=== PATIENT | male | born 1940 | race Caucasian/White ===

== ENCOUNTER → 2019-03-17 11:25 | Outpatient (CLI) | payer MEDICARE, OTHER, SELFPAY ==
--- NOTE | 2019-03-17 11:35 | CA_ITS ---
APPROVED REPORT Refrigerator Repair Technician: JR Laterality: Bilateral Indications: BG Risk Factors Hyperlipidemia CAD, Surgery/Intervention Endarterectomy: left Doppler Spectral Velocity Analysis ECA (R) 211.70/16.70 cm/s ECA (L) 241.60/27.00 cm/s dICA (R) 123.50/20.00 cm/s dICA (L) 118.50/23.10 cm/s Eduardo (R) 171.70/37.60 cm/s Eduardo (L) 129.10/20.20 cm/s pICA (R) 174.00/34.10 cm/s pICA (L) 99.20/14.40 cm/s dCCA (R) 95.00/15.40 cm/s dCCA (L) 86.00/16.70 cm/s pCCA (R) 104.00/12.80 cm/s pCCA (L) 94.40/21.20 cm/s Vert (R) 72.90/14.10 cm/s Vert (L) 53.90/12.50 cm/s ICA/CCA 1.80 ICA/CCA 1.50 Findings Duplex evaluation demonstrates stenosis of the right proximal internal carotid artery in the range of 50-69% with PSV =140 cm/sec, EDV <100 cm/sec, and IC/CC Ratio <4.0.Duplex evaluation demonstrates stenosis of the left proximal internal carotid artery in the range of 20-49% with PSV <140 cm/sec, EDV <100 cm/sec, and IC/CC Ratio <4.0. Conclusion Duplex evaluation demonstrates stenosis of the right proximal internal carotid artery in the range of 50-69% with PSV =140 cm/sec, EDV <100 cm/sec, and IC/CC Ratio <4.0.Duplex evaluation demonstrates stenosis of the left proximal internal carotid artery in the range of 20-49% with PSV <140 cm/sec, EDV <100 cm/sec, and IC/CC Ratio <4.0. Electronically signed by : Rick Ware MD 03/20/2019 16:01:24
== END ==
PROVIDERS: PCP Family Medicine; Visit Provider Internal Medicine
DX: I65.23 Occlusion and stenosis of bilateral carotid arteries (principal)
CPT/HCPCS: 93880

== ENCOUNTER → 2019-03-25 10:26 | Outpatient (CLI) | payer MEDICARE, OTHER, SELFPAY ==
[2019-03-25 10:49] LABS: Basophils % 0.4 % (0.1-2.0); Eosinophils # 0.2 K/mm3 (0.0-0.4); Eosinophils % 3.6 % (0.1-12.0); Hematocrit 35.2 % (42.0-52.0); Hemoglobin 11.8 g/dL (14.1-18.0); Lymphocytes # 1.8 K/mm3 (0.7-4.5); Lymphocytes % 27.3 % (10-50); Mean Corpuscular HGB Conc 33.6 g/dL (31.8-35.4); Mean Corpuscular Volume 92.4 fl (80-94); Mean Platelet Volume 8.5 fl (7.4-10.4); Monocytes # 0.4 K/mm3 (0.1-1.0); Monocytes % 6.6 % (1.7-9.3); Platelet Count 229 K/mm3 (142-424); Red Cell Distribution Width 12.7 % (11.5-17.5); White Blood Count 6.4 K/mm3 (4.8-10.8)
[2019-03-25 11:47] LABS: Anion Gap 13.4 mEq/L (5-15); Blood Urea Nitrogen 27 mg/dL (7-18); Calcium 8.5 mg/dL (8.5-10.1); Carbon Dioxide 27 mmol/L (21.0-32.0); Chloride 105 mmol/L (98-107); Creatinine,Serum 1.04 mg/dL (0.70-1.30); Estimated Glomerular Filt Rate 69 ml/min (>60); GFR (African American) 84 ML/MIN (>60); Glucose 195 mg/dL (74-106); Potassium 4.4 mmoL/L (3.5-5.1); Sodium 141 mmol/L (136-145)
== END ==
PROVIDERS: Visit Provider Internal Medicine
DX: Z95.5 Presence of coronary angioplasty implant and graft (principal); Z51.81 Encounter for therapeutic drug level monitoring
CPT/HCPCS: 36415; 80048; 85025

== ENCOUNTER → 2019-09-17 10:54 | Outpatient (CLI) | payer MEDICARE, OTHER, SELFPAY | PROVIDERS: PCP Family Medicine; Visit Provider Internal Medicine Cardiovascular Disease | DX: E11.9 Type 2 diabetes mellitus without complications (principal); E78.5 Hyperlipidemia, unspecified; F11.20 Opioid dependence, uncomplicated; G89.29 Other chronic pain; I11.9 Hypertensive heart disease without heart failure; I25.10 Atherosclerotic heart disease of native coronary artery without angina pectoris; I27.20 Pulmonary hypertension, unspecified; I65.29 Occlusion and stenosis of unspecified carotid artery; I70.1 Atherosclerosis of renal artery; I71.4 Abdominal aortic aneurysm, without rupture; I73.9 Peripheral vascular disease, unspecified; R94.31 Abnormal electrocardiogram [ECG] [EKG]; Z01.818 Encounter for other preprocedural examination; Z95.1 Presence of aortocoronary bypass graft; Z95.2 Presence of prosthetic heart valve | CPT/HCPCS: 93306 ==

== ENCOUNTER → 2020-01-19 12:19 | Outpatient (CLI) | payer MEDICARE, OTHER, SELFPAY ==
--- NOTE | 2020-01-19 12:32 | XR_ITS ---
PROCEDURE: XR CHEST 2V CLINICAL HISTORY: shortness of breath COMPARISON: No exams were available for comparison FINDINGS: Prior 6 median sternotomy with aortic valve replacement. Normal heart size. Coronary artery calcification is noted. There is increased soft tissue density in the left hilar region. There are no previous exams for comparison to determine if this is acute or chronic. Patchy density is present in the left perihilar area and may be due to an area of atelectasis infiltrate or fibrosis. There is mild wedging of T5 and T6 age indeterminate. IMPRESSION: Postsurgical changes with left perihilar atelectasis or infiltrate a with increased density in the left hilum the. Follow-up suggested to confirm stability Dictated by: Rick Ware MD 01/19/2020 12:49 Rick Ware MD in [place] 01/19/2020 12:49
[2020-01-19 12:47] LABS: Basophils % 0.3 % (0.1-2.0); Eosinophils # 0.1 K/mm3 (0.0-0.4); Eosinophils % 1.9 % (0.1-12.0); Hematocrit 32.9 % (42.0-52.0); Hemoglobin 10.5 g/dL (14.1-18.0); Lymphocytes # 1.5 K/mm3 (0.7-4.5); Lymphocytes % 24.5 % (10-50); Mean Corpuscular HGB Conc 31.8 g/dL (31.8-35.4); Mean Corpuscular Hemoglobin 29.6 pg (27.0-31.2); Mean Corpuscular Volume 93.3 fl (80-94); Mean Platelet Volume 8.5 fl (7.4-10.4); Monocytes # 0.4 K/mm3 (0.1-1.0); Monocytes % 5.7 % (1.7-9.3); Neutrophils # 4.1 K/mm3 (1.8-7.8); Neutrophils % 67.6 % (37.0-80.0); Platelet Count 257 K/mm3 (142-424); Red Blood Count 3.53 M/mm3 (4.60-6.20); Red Cell Distribution Width 15.1 % (11.5-17.5); White Blood Count 6.1 K/mm3 (4.8-10.8)
[2020-01-19 13:15] LABS: Chloride 107 mmol/L (98-107); Sodium 140 mmol/L (136-145)
[2020-01-19 13:16] LABS: Potassium 4.3 mmoL/L (3.5-5.1)
[2020-01-19 13:19] LABS: Anion Gap 11.3 mEq/L (5-15); Blood Urea Nitrogen 19 mg/dl (9-20); Calcium 9.3 mg/dl (8.4-10.2); Carbon Dioxide 26 mmol/L (22.0-30.0); Estimated Glomerular Filt Rate 65 ml/min (>60); GFR (African American) 79 ML/MIN (>60); Glucose 176 mg/dl (74-100)
[2020-01-19 13:26] LABS: NT Pro Brain Natriuretic Pep. 1790 pg/mL (0-450)
[2020-01-19 13:33] LABS: Free T4 (Free Thyroxine) 0.89 ng/dl (0.78-2.19)
[2020-01-19 13:47] LABS: Thyroid Stimulating Hormone 2.11 uIU/mL (0.465-4.68)
== END ==
PROVIDERS: Visit Provider Urology
DX: I50.9 Heart failure, unspecified (principal); R06.00 Dyspnea, unspecified; E11.9 Type 2 diabetes mellitus without complications
CPT/HCPCS: 36415; 71046; 80048; 83880; 84439; 84443; 85025

== ENCOUNTER → 2020-01-20 11:13 | Outpatient (CLI) | payer MEDICARE, OTHER, SELFPAY ==
--- NOTE | 2020-01-20 | CA_ITS ---
APPROVED REPORT Exam: Pharmacologic Technologist: Yarelis Norton Ht: 5 ft 8 in Wt: 209 lbs BSA: 2.08 m2 HR: 68 bpm BP: 120/59 mmHg Indications: Chest pain, Shortness of Breath Medical History Medications: Furosemide (LASIX),,,,, Aspirin,,,,, Losartan,,,,, Pantoprazole,,,,, Glimepiride,,,,, Citalopram,,,,, Duoneb,,,,, Ropinirole,,,,, CloPIdogrel,,,,, Potassium,,,,, Hydrocodone-Acetaminohen,,,,, Stress Test Details Test: LEXISCAN HR Resting HR: 86 bpm Max Heart Rate (APMHR): 143 bpm Max HR Achieved: 95 bpm Target HR (85% APMHR): 121 bpm % of APMHR: 66 Recovery HR: 76 bpm BP Resting BP: 120.0/59.0 mmHg Max BP: 132.0/60.0 mmHg Recovery BP: 132.0/60.0 mmHg ECG Clinical Exercise duration: 04:00 min Highest Stage Achieved: Stress ECG Conclusion Resting EKG: Normal sinus rhythm, right axis, LVH with strain pattern. Symptoms: Shortness of air, malaise, nausea, headache. Arrhythmias/Ectopy: Rare PAC ST-T Changes: No significant changes. Conclusion: Non-diagnostic Lexiscan stress. Myoview images reported separately. Test Summary . . Myoview Injected . . . Stop exercise at 04:00 . . . . Electronically signed by : Jordon Barragan, 01/21/2020 05:34:07
--- NOTE | 2020-01-20 11:14 | CA_ITS ---
APPROVED REPORT EXAM: Comprehensive 2D, Doppler, and color-flow Echocardiogram Staple Laster: Keira Crandall RDCS Ht: 5 ft 8 in Wt: 208lbs BSA: 2.08 BP: 136/57 mmHg Indications: AVR,CAD,SOA,EDEMA,DM,HLP 2D Dimensions LVOT 1.62 cm (M/F) 1.5-2.5 M-Mode Dimensions RVDd 2.37 cm (0.9-2.6) LA Diam 4.00 cm (1.9-4.0) LVDd 6.14 cm (3.5-5.7) Ao Diam 3.69 cm (2.0-3.7) LVDs 4.82 cm (3.5-5.7) IVSd 1.08 cm (0.6-1.1) PWd 0.96 cm (0.6-1.1) EF (Teich) 42.80% FS 21.50% EDV (Teich) 189.70 mL ESV (Teich) 108.60 mL LV Diastology E Decel Time 197.00 (160-240 msec) E/A Ratio 1.3 MED E' 6.00 (< 7 cm/sec) E'/MED E' Ratio 16.62 (>14) LAT E' 5.60 (<10 cm/sec) E/LAT E' Ratio 17.80 (>14) Aortic Valve LVOT Max 139.00 (70-110 cm/s) LVOT VTI 31.97 cm AoV Peak Daryl. 261.00 (50-130 cm/s) AO Peak GR. 27.50 mmHg AO Mean GR. 18.30 (<5 mmHg) AO VTI 58.86 (18-25 cm) JAY (VTI) 1.12 (2.5-4.5 cm2) Mitral Valve MV E Max Daryl. 100.00 (40-130 cm/s) MV A Velocity 76.00 (40-130 cm/s) E/A Ratio 1.32 MV Decel. Time 197.00 (160-240 ms) MV PHT 58.00 ms Tricuspid Valve TR P. Velocity 315.00 cm/s RAP Estimate 10.00 mmHg RVSP 49.80 mmHg Left Ventricle Technically difficult study because of the patient factors and poor acoustic windows. Left atrium is mildly enlarged, left ventricle is normal size, mild concentric left ventricular hypertrophy, visually estimated ejection fraction 45%, there is moderate hypokinesis involving the inferior and inferior basal wall. Grade 1 diastolic dysfunction seen with tissue Doppler evidence of raise left atrial pressure. Right Ventricle Right atrium and right ventricle mildly enlarged with normal contractility. Aortic Valve There is a bioprosthetic valve in the aortic position, the leaflets are not well visualized, the mean gradient across valve is 24 mmHg. There is no aortic insufficiency. Mitral Valve Mitral valve has dense mitral annular calcification, leaflets are minimally thickened, there is no mitral stenosis, there is mild mitral regurgitation. Tricuspid Valve Tricuspid valve is grossly normal, there is mild tricuspid regurgitation. Pulmonic Valve Pulmonic valve is poorly visualized. Great Vessels Aortic root is normal size. Pericardium No significant pericardial effusion noted. Conclusion 1. Biatrial enlargement, normal left ventricular size, mild concentric left ventricular hypertrophy, visually estimated ejection fraction 45% with segmental wall motion abnormality described above. Grade 1 diastolic dysfunction seen with tissue Doppler evidence of raise left atrial pressure. 2. Mildly enlarged right ventricle with normal contractility. 3. Bioprosthetic valve in the aortic position, leaflets are not well visualized, mean gradient across valve is 24 mmHg. There is no aortic insufficiency. 4. Mild mitral and tricuspid regurgitation. 5. No significant pericardial effusion noted. Electronically signed by : Jordon Barragan, 01/21/2020 06:36:59
--- NOTE | 2020-01-20 11:51 | NM_ITS ---
APPROVED REPORT Exam: Nuclear Stress Test Indication: chest pain..short of breath..palpitations..syncope..fatigue Patient Location: Outpatient Stress Tech: Yarelis Norton [place] Tech:Brooke Green AMALIALynn RT(R)(N) Ht: 5 ft 9 in Wt: 209 lbs HR: 68 bpm BP: 120/59 mmHg BSA: 2.10 m2 BMI: 30.8 History: chest pain..short of breath..palpitations..syncope..fatigue Procedure: Patient received a 0.4 mg of intravenous Lexiscan, resting heart rate 68 bpm, resting blood pressure 120/59 mmHg, with Lexiscan maximum heart rate achived was 91 bpm which is Less than 85 % of the maximum predicted heart rate and blood pressure was 126/56 mmHg. With Lexiscan, patient denied any complaint of chest pain. Electrocardiogram Resting electrocardiogram showed sinus rhythm, nonspecific ST-T changes, with Lexiscan there is less than 1.[address] segment depression noted from the baseline EKG. The EKG portion of the Lexiscan Myoview is nondiagnostic. Cardiac Stress and Resting SPECT Images: Cardiac Stress and Resting SPECT images were obtained using technetium 99m Myoview 32.4 mCi stress and 10.27 mCi at rest. Gated SPECT for analysis of segmental wall motion and calculation of the ejection fraction also done. Cardiac stress and rest SPECT images show a partial reversible defect involving the inferior wall consistent with mixed ischemia and scar, there is transient ischemic dilatation of the left ventricle seen, computer derived ejection fraction is 47% with moderate inferior wall hypokinesis. Right ventricle is mildly enlarged with normal contractility. Conclusion: 1. The EKG portion of the Lexiscan Myoview is nondiagnostic. 2. Scintigraphic evidence of mixed ischemia and scar involving the inferior wall, there is transient ischemic dilatation of the left ventricle seen raising the concerns for presence of multivessel coronary artery disease, computer derived ejection fraction is 47% with segmental wall motion abnormality described above, right ventricle is mildly enlarged with normal contractility. 3. Abnormal Lexiscan Myoview study. Electronically signed by : Jordon Barragan, 01/21/2020 05:57:54
--- NOTE | 2020-01-20 14:52 | HMH.ITSHM ---
Current Home Medications as stated by this patient Molina Murguia or workforce services representative. []clopidogrel citalopram pantoprazole asa glimepiride losartan
== END ==
PROVIDERS: PCP Family Medicine; Visit Provider Internal Medicine
DX: R94.31 Abnormal electrocardiogram [ECG] [EKG] (principal); Z95.1 Presence of aortocoronary bypass graft; R06.02 Shortness of breath
CPT/HCPCS: 78452; 93017; 93306; A9502; J2785

== ENCOUNTER → 2020-01-21 12:15 | Outpatient (CLI) | payer MEDICARE, OTHER, SELFPAY ==
[2020-01-21 13:05] LABS: Basophils % 0.3 % (0.1-2.0); Eosinophils # 0.2 K/mm3 (0.0-0.4); Eosinophils % 2.4 % (0.1-12.0); Hematocrit 32.5 % (42.0-52.0); Lymphocytes # 1.4 K/mm3 (0.7-4.5); Lymphocytes % 21.2 % (10-50); Mean Corpuscular HGB Conc 30.8 g/dL (31.8-35.4); Mean Corpuscular Hemoglobin 29.1 pg (27.0-31.2); Mean Corpuscular Volume 94.4 fl (80-94); Monocytes # 0.5 K/mm3 (0.1-1.0); Monocytes % 7.9 % (1.7-9.3); Neutrophils # 4.6 K/mm3 (1.8-7.8); Neutrophils % 68.3 % (37.0-80.0); Platelet Count 243 K/mm3 (142-424); Red Blood Count 3.44 M/mm3 (4.60-6.20); Red Cell Distribution Width 14.6 % (11.5-17.5); White Blood Count 6.7 K/mm3 (4.8-10.8)
[2020-01-21 13:30] LABS: Chloride 106 mmol/L (98-107); Potassium 4.5 mmoL/L (3.5-5.1); Sodium 142 mmol/L (136-145)
[2020-01-21 13:33] LABS: Anion Gap 15.5 mEq/L (5-15); Blood Urea Nitrogen 20 mg/dl (9-20); Calcium 9.3 mg/dl (8.4-10.2); Carbon Dioxide 25 mmol/L (22.0-30.0); Estimated Glomerular Filt Rate 59 ml/min (>60); GFR (African American) 71 ML/MIN (>60); Glucose 149 mg/dl (74-100)
[2020-01-21 15:09] LABS: Coronavirus 19 IgG Antibody Negative (Negative); Coronavirus 19 IgM Antibody Negative (Negative)
== END ==
PROVIDERS: Visit Provider Internal Medicine
DX: Z01.818 Encounter for other preprocedural examination (principal); I50.33 Acute on chronic diastolic (congestive) heart failure; R94.31 Abnormal electrocardiogram [ECG] [EKG]; I50.22 Chronic systolic (congestive) heart failure
CPT/HCPCS: 36415; 80048; 85025; 86328

== ENCOUNTER 2020-01-23 07:53 | Day surgery (SDC) | payer MEDICARE, OTHER, SELFPAY ==
[2020-01-23] VITALS (21 sets, daily range): BP systolic 128–175; BP diastolic 61–103; PULSE 62–84; RESP 16–20; TEMP 36.8–37.3; O2SAT 96–98; BMI 31.6
--- NOTE | 2020-01-23 07:07 | IR_ITS ---
APPROVED REPORT Patient Location: Outpatient PROCEDURES Right heart catheterization Left heart catheterization Left ventriculogram Selective coronary angiogram Selective engagement of the left internal mammary artery which bifurcates into the first diagonal artery and mid LAD Selective engagement of the saphenous vein graft to the right coronary INDICATION Coronary artery disease, History of coronary bypass surgery, Pulmonary hypertension, Biventricular congestive heart failure, Short of angina and heart failure symptoms, History of aortic valve replacement Informed consent was obtained prior to the procedure. COMPLICATIONS none Estimated Blood Loss: less than 10 mls TECHNIQUE One percent lidocaine was used to anesthetize the right groin. The right femoral artery was accessed via the Seldinger technique. A 4-Icelandic and 7 german sheath was placed in the right femoral artery and vein respectfully. A 7 Icelandic sheath was introduced and a [place]-Nael catheter was floated using hemodynamic waveforms in the pulmonary artery, right ventricle , and right atrium. Saturations were obtained in the pulmonary artery and the right atrium. The JR-4 and JL-4 catheter was also used to perform left heart catheterization, left ventriculography and selective coronary angiogram. The JR4 catheter was used to selectively intubate the left internal mammary artery and the multipurpose catheter was used to cannulate the saphenous vein graft to the right coronary at the end of the procedure the patient was transferred to the post-op holding area in stable condition for arterial sheath removal. ANGIOGRAPHIC RESULTS The left main artery Has a stent in the ostial proximal mid distal segment which extends into the proximal LAD. The stent is widely patent with minimal in-stent restenosis The left anterior descending artery Has a stent originating from the left main artery and extending the proximal LAD. The ostial LAD has a 50% hazy stenosis. There is competitive flow identified from the TYSON graft to the LAD. The first diagonal artery is occluded however supplied by large arterial graft teeing off the left internal mammary artery The circumflex artery Is nondominant and has a stent in the proximal segment which has mild in-stent restenosis. The mid vessel was smaller in caliber approximately 2 mm and then supplies a solitary terminal obtuse marginal artery which has a proximal 60% stenosis The right coronary artery Is dominant proximally subtotally occluded and fills via left to right collaterals from the LAD The DOMINGO ventriculogram reveals Dilated ventricle with inferior wall hypokinesis and estimated ejection fraction 40 to 45% The left ventricular end-diastolic pressure 18 mmHg Left internal mammary arteries are widely patent large graft which supplies the mid LAD with antegrade flow. There is a graft which teased off the distal TYSON and then supplies a large diagonal artery which is also widely patent. The saphenous vein graft to the right coronary is proximally occluded Right atrial pressure 8 mmHg Pulmonary artery pressure 32/20 mmHg Pulmonary occlusion pressure 17 mmHg Right atrial saturation 61% Pulmonary artery saturation 65% There is a 20 mm transaortic valve gradient upon catheter pullback with a 5 Icelandic JR4 catheter IMPRESSION Coronary artery disease as described above Interval progression of coronary artery disease with interval occlusion of the saphenous vein graft supplying right coronary Mild pulmonary hypertension Mildly elevated intracardiopulmonary filling pressures Mild aortic stenosis within the prosthetic aortic valve PLAN 1. Continue medical management for coronary disease 2. Continu
[2020-01-23 12:20] LABS: CATHL Arterial O2 SAT 65.4 % (90-100)
== END 2020-01-23 13:14 | disposition home or self-care (01) ==
LOC: CATHLAB 07:54
PROVIDERS: PCP Family Medicine; Visit Provider Internal Medicine
DX: I25.118 Atherosclerotic heart disease of native coronary artery with other forms of angina pectoris; I50.42 Chronic combined systolic (congestive) and diastolic (congestive) heart failure; I65.29 Occlusion and stenosis of unspecified carotid artery; I71.4 Abdominal aortic aneurysm, without rupture; I27.20 Pulmonary hypertension, unspecified; E11.22 Type 2 diabetes mellitus with diabetic chronic kidney disease; N18.30 Chronic kidney disease, stage 3 unspecified; R06.00 Dyspnea, unspecified; I13.0 Hypertensive heart and chronic kidney disease with heart failure and stage 1 through stage 4 chronic kidney disease, or unspecified chronic kidney disease; R60.9 Edema, unspecified; E78.5 Hyperlipidemia, unspecified; Z95.2 Presence of prosthetic heart valve; Z79.52 Long term (current) use of systemic steroids; Z79.01 Long term (current) use of anticoagulants; Z79.899 Other long term (current) drug therapy
CPT/HCPCS: 82810; 93461; 99152; C1725; C1751; C1769; C1894; J1644; Q9967

== ENCOUNTER → 2020-09-28 07:39 | Outpatient (CLI) | payer MEDICARE, OTHER, SELFPAY ==
--- NOTE | 2020-09-28 07:40 | US_ITS ---
PROCEDURE: US ABD. AORTA SCREENING CLINICAL INDICATION: AAA 3.3 cm Screening for abdominal aortic aneurysm COMPARISON: No exams were available for comparison FINDINGS: There is mild fusiform dilatation of the mid abdominal aorta at 3 cm. Proximal common iliacs are unremarkable at 1 cm each. Images are somewhat limited secondary to overlying bowel gas. 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 Dictated by: Rick Ware MD 09/28/2020 08:47 Rick Ware MD in [place] 09/28/2020 08:47
--- NOTE | 2020-09-28 08:19 | CA_ITS ---
APPROVED REPORT [place] Nibs Inspector: YOAN Laterality: Bilateral Study Quality: Good Indications: carotid artery stenosis Risk Factors Hypertension: Hyperlipidemia CAD, Diabetes, BG, AAA Doppler Spectral Velocity Analysis ECA (R) 325.10/25.70 cm/s ECA (L) 254.50/18.80 cm/s dICA (R) 140.70/36.20 cm/s dICA (L) 117.50/27.90 cm/s Eduardo (R) 144.90/33.40 cm/s Eduardo (L) 173.40/31.80 cm/s pICA (R) 182.50/43.20 cm/s pICA (L) 121.40/33.70 cm/s dCCA (R) 98.50/18.80 cm/s dCCA (L) 113.10/19.70 cm/s pCCA (R) 100.50/13.90 cm/s pCCA (L) 100.20/14.60 cm/s Vert (R) 48.60/9.70 cm/s Vert (L) 96.30/20.20 cm/s ICA/CCA 1.85 ICA/CCA 1.53 Findings Duplex evaluation demonstrates stenosis of the right proximal internal carotid artery in the range of 50-69%. Duplex evaluation demonstrates stenosis of the left proximal internal carotid artery in the range of 50-69%. Duplex evaluation demonstrates antegrade flow of the bilateral vertebral arteries. B-Mode Ultrasound demonstrates mild to moderate intraluminal plaque in the right internal carotid artery. Conclusion Duplex evaluation demonstrates stenosis of the right proximal internal carotid artery in the range of 50-69%. Duplex evaluation demonstrates stenosis of the left proximal internal carotid artery in the range of 50-69%. Duplex evaluation demonstrates antegrade flow of the bilateral vertebral arteries. B-Mode Ultrasound demonstrates mild to moderate intraluminal plaque in the right internal carotid artery. Electronically signed by : Rick Ware MD 09/28/2020 16:33:47
== END ==
PROVIDERS: PCP Nurse Practitioner; Visit Provider Physician Assistant
DX: E11.9 Type 2 diabetes mellitus without complications (principal); E78.5 Hyperlipidemia, unspecified; F11.20 Opioid dependence, uncomplicated; G89.29 Other chronic pain; I11.9 Hypertensive heart disease without heart failure; I25.10 Atherosclerotic heart disease of native coronary artery without angina pectoris; I27.9 Pulmonary heart disease, unspecified; I35.9 Nonrheumatic aortic valve disorder, unspecified; I50.9 Heart failure, unspecified; I70.1 Atherosclerosis of renal artery; N18.30 Chronic kidney disease, stage 3 unspecified; R06.00 Dyspnea, unspecified; R94.31 Abnormal electrocardiogram [ECG] [EKG]; Z95.1 Presence of aortocoronary bypass graft; I65.23 Occlusion and stenosis of bilateral carotid arteries; Z79.84 Long term (current) use of oral hypoglycemic drugs
CPT/HCPCS: 76705; 93880

== ENCOUNTER → 2021-05-20 15:34 | Outpatient (CLI) | payer MEDICARE, OTHER, SELFPAY | PROVIDERS: Visit Provider Internal Medicine Pulmonary Disease | DX: Z01.812 Encounter for preprocedural laboratory examination (principal); Z11.52 Encounter for screening for COVID-19 | CPT/HCPCS: C9803; U0003; U0005 ==

== ENCOUNTER 2021-05-23 10:35 | Day surgery (SDC) | payer MEDICARE, OTHER, SELFPAY ==
[2021-05-19 10:02] VITALS: BMI 31.0
[2021-05-23] VITALS (10 sets, daily range): BP systolic 139–166; BP diastolic 60–90; PULSE 67–83; RESP 12–18; TEMP 36.2–37; O2SAT 92–97
--- NOTE | 2021-05-23 12:09 | HMH.ANESCL ---
[facility] Anesthesia Checklist - Patient Identification Patient Identification: Arm Band - Structural Data Admitted From: Home Planned Operative Procedure/s: Lumbar decompression Consent for Planned Operative Procedure(s) Verified: Yes - NPO Status Verified Time NPO: 00:00 - Airway Assessment C-Spine Mobility Assessed: Yes TMJ Mobility Assessed: Yes Dentition: Edentulous - Neurological Assessment Level of Consciousness: Awake Hx Seizures: No Numbness or tingling in extremities: No - Anesthesia Plan Anesthesia Risk discussed: Yes Anesthesia Plan: Verified ASA Class: III Anesthesia Type: MAC [facility] History Medical History: Reports:: Aneurysm, Cancer (lung), Chronic Obstructive Pulmonary Disease (COPD), Coronary Artery Disease, Diabetes Mellitus Type 2, Hyperlipidemia, Hypertension, MRSA (toe), Peripheral Artery Disease Denies:: Diabetes Mellitus Type 1, Internal Pacemaker, Seizures *Have you ever received a pneumonia vaccine?: Yes *Have you received a flu vaccine this season?: Yes Anesthesia experience/problems:: None Other Surgeries: Yes: Angioplasty, Cardiac Catheterization, Coronary Stent, EGD. No: Pacemaker Amputation: No Fractures: No - *Social History Last grade of school completed: 5th or 6th Smoking Status: Former smoker # Packs/Day (cigarettes): 1 Alcohol Intake: never Substance Use Type: denies use *Occupational Status:: retired Housing: house Household Members: none *Travel in the last 8 weeks: None Family Hx:: Cancer, Diabetes, Heart Attack
--- NOTE | 2021-05-23 14:52 | XR_ITS ---
FINAL REPORT CLINICAL HISTORY: BRONCHOSCOPY FINDINGS: FLUORO TIME PROCEDURE: Bronchoscopy FINDINGS: Fluoroscopy time was provided by the radiology department for the clinical service. 1 film was obtained. Fluoroscopy exposure time: 0.35 minutes IMPRESSION: See above Reviewed, Interpreted and Dictated by Molina Shine III, MD Transcribed by Kaitlyn Dawn Authenticated by Molina Shine III, MD on 05/23/2021 04:57:03 PM [facility]
--- NOTE | 2021-05-23 15:16 | HMH.ANESI ---
[facility] Anesthesia Record Part I Intake, IV Amount: 1,200 Estimated blood loss (mL): 50 Urine output (mL): 0 Blood Pressure: 140/60 SaO2: 94 Pulse Rate: 76 Respiratory Rate: 12 Temperature: 97.1 F Patient is:: Awake, Stable Stable to PACU at:: 15:15
--- NOTE | 2021-05-23 15:52 | SUR.PHASEI ---
1546 detail report given to Teddy Gao RN. BS obtained with results of 161. Pt left in stable condition with post op RN.
[2021-05-23 15:57] LABS: POC Glucose,Bedside 161 (70-110)
--- NOTE | 2021-05-24 09:57 | P.PN_ITS ---
[facility] Anesthesia Record Part II Discharge Time: 15:45 Destination: Surgical Day Care (OP Surgery) PACU nurse assessment reviewed?: Yes Patient Condition:: Good Anesthesia Complications:: None Swallowing reflex intact?: Yes Cyanosis?: No Blood Pressure: 150/76 Pulse Rate: 70 Temperature: 97.8 F Mental Status: Alert & Oriented Pain level:: 0 Nausea and/or vomitting:: None Intake, IV Amount: 0
[2021-05-24 09:58] VITALS: BP 150/76; PULSE 70; TEMP 36.6
--- NOTE | 2021-05-27 10:40 | HMH.BRONCH ---
- Procedure: Date: 05/23/21 Patient Date of :: 1940 Procedure Performed:: Bronchoscopy with EBUS FNA, and transbronchial biopsy Indications:: Lung nodule and lymphadenopathy Performing Provider:: Richard Freeman MD Referring Provider:: Dr. Galvan Sedation:: General anesthesia Procedure:: Bronchoscopy with EBUS FNA, and transbronchial biopsy: Clean EBUS bronchoscopy was advanced the ET tube and lymph node surveillance was performed, patient noted to have lymphadenopathy at stations 10 L, 7 and 4L. No other lymphadenopathy noted. FNA samples were performed stations 10 L, 7 and 4L respectively with 7 passes in each site. Sampling was bloody intermixed with lymphoid tissue. Pathology at the bedside, confirm lymphoid tissue, however bloody given bloody sample recommended to wait for the final results to evaluate for the possibility of malignancy. EBUS bronchoscopy was retracted and getting bronchoscopy was advanced and biopsy was performed in the left upper lobe anterior segment, 1 biopsy sample was collected which was complicated by bleeding and the procedure was aborted. Cold saline was instilled and waited for 5 minutes. Adequate hemostasis was obtained before retracting the bronchoscopy. The one biopsy sample was sent in formalin for cytopathological examination. Bronchoalveolar lavage was not performed. Patient tolerated the procedure well. Findings:: Please see the procedure note Specimens:: FNA,and transbronchial biopsy Recommendations:: Hold aspirin and Plavix for 5 more days. Follow in the clinic in 5 days to discuss the results. Complications:: None Estimated blood obtained (mL): 20
[2021-12-15 10:57] LABS: POC Glucose,Bedside 139 (70-110)
== END 2021-05-23 16:33 | disposition home or self-care (01) ==
LOC: OR 10:36
PROVIDERS: PCP Nurse Practitioner; Visit Provider Internal Medicine Pulmonary Disease
PROC: (CPT 31628; principal; 2021-05-23 12:30)
DX: R91.8 Other nonspecific abnormal finding of lung field (principal); I25.10 Atherosclerotic heart disease of native coronary artery without angina pectoris; E11.9 Type 2 diabetes mellitus without complications; I10 Essential (primary) hypertension; Z87.891 Personal history of nicotine dependence; Z79.899 Other long term (current) drug therapy; Z79.84 Long term (current) use of oral hypoglycemic drugs
CPT/HCPCS: 31628; 31653; 71045; 76000; 82962; 88172; 88173; 88305; 88333; J2405; J2710

== ENCOUNTER → 2021-06-09 12:51 | Outpatient (CLI) | payer MEDICARE, OTHER, SELFPAY ==
--- NOTE | 2021-06-09 12:58 | XR_ITS ---
FINAL REPORT TECHNIQUE: Chest PA & Lateral CLINICAL HISTORY: dyspnea COMPARISON: January 19, 2020 FINDINGS: 2 views of the chest were performed. There are multiple median sternotomy wires. The heart size is normal. The mediastinum is within normal limits. There is a 3 cm left perihilar mass. There are no pleural effusions. There is no pneumothorax. There is a lower thoracic stimulator. IMPRESSION: Left perihilar mass. Recommend infused chest CT to better characterize. Reviewed, Interpreted and Dictated by Fausto Mckeon MD Transcribed by Taiwo Arreola Authenticated by Fausto Mckeon MD on 06/09/2021 02:17:19 PM [facility]
[2021-06-09 14:05] LABS: Basophils % 0.3 % (0.1-2.0); Eosinophils # 0.2 K/mm3 (0.0-0.4); Eosinophils % 1.9 % (0.1-12.0); Hematocrit 28.1 % (42.0-52.0); Hemoglobin 8.8 g/dL (14.1-18.0); Lymphocytes # 1.6 K/mm3 (0.7-4.5); Lymphocytes % 18.3 % (10-50); Mean Corpuscular HGB Conc 31.5 g/dL (31.8-35.4); Mean Corpuscular Hemoglobin 29.7 pg (27.0-31.2); Mean Corpuscular Volume 94.1 fl (80-94); Mean Platelet Volume 8.4 fl (7.4-10.4); Monocytes # 0.6 K/mm3 (0.1-1.0); Monocytes % 6.7 % (1.7-9.3); Neutrophils # 6.4 K/mm3 (1.8-7.8); Neutrophils % 72.8 % (37.0-80.0); Platelet Count 280 K/mm3 (142-424); Red Blood Count 2.98 M/mm3 (4.60-6.20); Red Cell Distribution Width 15.5 % (11.5-17.5); White Blood Count 8.8 K/mm3 (4.8-10.8)
[2021-06-09 14:37] LABS: Chloride 108 mmol/L (98-107); Sodium 143 mmol/L (136-145)
[2021-06-09 14:40] LABS: Blood Urea Nitrogen 47 mg/dl (9-20); Calcium 8.1 mg/dl (8.4-10.2); Carbon Dioxide 24 mmol/L (22.0-30.0); Estimated Glomerular Filt Rate 45 ml/min (>60); GFR (African American) 55 ML/MIN (>60); Glucose 162 mg/dl (74-100)
[2021-06-09 14:49] LABS: NT Pro Brain Natriuretic Pep. 3470 pg/mL (0-450)
== END ==
PROVIDERS: PCP Nurse Practitioner; Visit Provider Internal Medicine
DX: E11.9 Type 2 diabetes mellitus without complications (principal); E78.5 Hyperlipidemia, unspecified; G89.29 Other chronic pain; I11.0 Hypertensive heart disease with heart failure; I25.10 Atherosclerotic heart disease of native coronary artery without angina pectoris; I27.9 Pulmonary heart disease, unspecified; I35.9 Nonrheumatic aortic valve disorder, unspecified; I50.9 Heart failure, unspecified; I65.29 Occlusion and stenosis of unspecified carotid artery; I70.1 Atherosclerosis of renal artery; I73.9 Peripheral vascular disease, unspecified; N18.30 Chronic kidney disease, stage 3 unspecified; R06.00 Dyspnea, unspecified; R94.31 Abnormal electrocardiogram [ECG] [EKG]; Z95.1 Presence of aortocoronary bypass graft; Z79.84 Long term (current) use of oral hypoglycemic drugs
CPT/HCPCS: 71046; 80048; 83880; 85025

== ENCOUNTER → 2021-08-03 12:00 | Outpatient (CLI) | payer MEDICARE, OTHER, SELFPAY ==
[2021-08-03 13:03] LABS: Chloride 104 mmol/L (98-107)
[2021-08-03 13:04] LABS: Potassium 4.8 mmoL/L (3.5-5.1); Sodium 140 mmol/L (136-145)
[2021-08-03 13:06] LABS: Blood Urea Nitrogen 30 mg/dl (9-20); Estimated Glomerular Filt Rate 59 ml/min (>60); GFR (African American) 71 ML/MIN (>60)
[2021-08-03 13:07] LABS: Anion Gap 12.8 mEq/L (5-15); Carbon Dioxide 28 mmol/L (22.0-30.0); Glucose 180 mg/dl (74-100)
== END ==
PROVIDERS: Visit Provider Physician Assistant
DX: C34.90 Malignant neoplasm of unspecified part of unspecified bronchus or lung (principal); R06.00 Dyspnea, unspecified; Z87.09 Personal history of other diseases of the respiratory system
CPT/HCPCS: 36415; 80048

== ENCOUNTER → 2022-06-06 14:07 | Outpatient (CLI) | payer MEDICARE, OTHER, SELFPAY ==
--- NOTE | 2022-06-06 15:10 | RESP.PFTSS ---
Patient states he cannot do the six minute walk. Resp. Care checked patients oxygen saturation after the patient walked from the lobby to PFT room 2. His oxygen saturation dropped to 89% on room air. After three minutes of rest, his oxygen saturation increased to 91% on room air.
[2022-06-06 15:25] VITALS: PULSE 66; PULSE 70
== END ==
PROVIDERS: PCP Nurse Practitioner; Visit Provider Internal Medicine Pulmonary Disease
DX: R06.09 Other forms of dyspnea (principal); R07.89 Other chest pain; R00.2 Palpitations; E78.2 Mixed hyperlipidemia; I25.10 Atherosclerotic heart disease of native coronary artery without angina pectoris; I27.9 Pulmonary heart disease, unspecified; I35.9 Nonrheumatic aortic valve disorder, unspecified; I50.42 Chronic combined systolic (congestive) and diastolic (congestive) heart failure; I65.29 Occlusion and stenosis of unspecified carotid artery; I70.1 Atherosclerosis of renal artery; I77.9 Disorder of arteries and arterioles, unspecified; N18.30 Chronic kidney disease, stage 3 unspecified; Z95.0 Presence of cardiac pacemaker; Z95.1 Presence of aortocoronary bypass graft
CPT/HCPCS: 93270; 94060; 94640; 94727; 94729

== ENCOUNTER → 2022-06-29 09:32 | Outpatient (CLI) | payer MEDICARE, OTHER, SELFPAY ==
[2022-06-29 10:03] LABS: Basophils % 0.4 % (0.1-2.0); Eosinophils # 0.2 K/mm3 (0.0-0.4); Eosinophils % 2.6 % (0.1-12.0); Hematocrit 29.2 % (42.0-52.0); Hemoglobin 9.7 g/dL (14.1-18.0); Lymphocytes # 0.7 K/mm3 (0.7-4.5); Lymphocytes % 9.6 % (10-50); Mean Corpuscular HGB Conc 33.2 g/dL (31.8-35.4); Mean Corpuscular Hemoglobin 30.4 pg (27.0-31.2); Mean Corpuscular Volume 91.6 fl (80-94); Mean Platelet Volume 9.1 fl (7.4-10.4); Monocytes # 0.5 K/mm3 (0.1-1.0); Monocytes % 6.7 % (1.7-9.3); Neutrophils # 5.8 K/mm3 (1.8-7.8); Neutrophils % 80.6 % (37.0-80.0); Platelet Count 275 K/mm3 (142-424); Red Blood Count 3.19 M/mm3 (4.60-6.20); Red Cell Distribution Width 15.9 % (11.5-17.5); White Blood Count 7.2 K/mm3 (4.8-10.8)
[2022-06-29 10:51] LABS: Anion Gap 13.3 mEq/L (5-15); Blood Urea Nitrogen 25 mg/dl (9-20); Carbon Dioxide 25 mmol/L (22.0-30.0); Chloride 105 mmol/L (98-107); Estimated Glomerular Filt Rate 58 ml/min (>60); GFR (African American) 71 ML/MIN (>60); Glucose 165 mg/dl (74-100); Potassium 4.3 mmoL/L (3.5-5.1); Sodium 139 mmol/L (136-145)
[2022-06-29 10:59] LABS: NT Pro Brain Natriuretic Pep. 1140 pg/mL (0-450)
[2022-06-29 11:52] LABS: Lymphocytes % 15 % (10-50); Monocytes % 5 % (2-9); Neutrophils % 80 % (42-76); Platelet Estimate Normal; Total Cells Counted 100
[2022-06-29 11:53] LABS: RBC Morphology Normal
[2022-06-29 11:57] LABS: MANUAL DIFFERENTIAL MANUAL DIFFERENTIAL (MANUAL DIFF)
== END ==
PROVIDERS: PCP Nurse Practitioner; Visit Provider Physician Assistant
DX: C34.90 Malignant neoplasm of unspecified part of unspecified bronchus or lung (principal); E78.2 Mixed hyperlipidemia; I11.9 Hypertensive heart disease without heart failure; I25.10 Atherosclerotic heart disease of native coronary artery without angina pectoris; I27.9 Pulmonary heart disease, unspecified; I35.9 Nonrheumatic aortic valve disorder, unspecified; I48.0 Paroxysmal atrial fibrillation; I50.42 Chronic combined systolic (congestive) and diastolic (congestive) heart failure; I65.29 Occlusion and stenosis of unspecified carotid artery; I70.1 Atherosclerosis of renal artery; I71.4 Abdominal aortic aneurysm, without rupture; I77.9 Disorder of arteries and arterioles, unspecified; N18.30 Chronic kidney disease, stage 3 unspecified; R00.2 Palpitations; R06.09 Other forms of dyspnea; R07.89 Other chest pain; Z95.1 Presence of aortocoronary bypass graft
CPT/HCPCS: 36415; 80048; 83880; 85007; 85014; 85018; 85048; 85049

== ENCOUNTER → 2022-07-26 12:04 | Outpatient (CLI) | payer MEDICARE, OTHER, SELFPAY ==
--- NOTE | 2022-07-26 | CA_ITS ---
APPROVED REPORT Exam: Pharmacologic Technologist: Mirlande Zhou, Ht: 5 ft 8 in Wt: 190 lbs BSA: 2.00 m2 HR: 67 bpm BP: 180/71 mmHg Rhythm: NSR, rightward axis, ST-T abns inferiorly and laterally Indications: SOA, CAD Medical History Medications: Asa,,,,, Metformin,,,,, Trazadone,,,,, Ferrous sulfate,,,,, Gabapentin,,,,, Losartan,,,,, Pantoprazole,,,,, Glimepiride,,,,, Carvedilol,,,,, Citalopram,,,,, Ropinirole,,,,, Albuterol,,,,, Cardiac Risk Factors: HTN, Hyperlipidemia, Diabetes (non-insulin), Smoking Stress Test Details Test: LEXISCAN HR Resting HR: 68 bpm Max Heart Rate (APMHR): 141.289280 bpm Max HR Achieved: 80 bpm Target HR (85% APMHR): 119.242645 bpm % of APMHR: 56.74 Recovery HR: 77 bpm BP Resting BP: 180/71 mmHg Max BP: 187/67 mmHg Recovery BP: 161.0/68.0 mmHg ECG Resting ECG: NSR, rightward axis, ST-T abns inferiorly and laterally Clinical Exercise duration: 04:02 min Highest Stage Achieved: Exercise capacity: 1.0 METs Stress ECG Conclusion During lexiscan pt experinced mild SOA, head and stomach discomfort. No CP noted. No arrhythmias noted. Mild exaggeration of baseline abns. Non diagnostic lexiscan stress. Myoview images reported separately. Test Summary REST . . . . . . . Sitting REST 05:00 . . 68 . 180/ 71 . . Stage 1 01:00 . . 78 . . . . Stage 2 01:00 . . 80 . 187/ 67 . . Stage 3 01:00 . . 78 . . . . Stage 4 01:00 . . 75 . 157/ 73 . . Stage 4 01:02 . . 75 . 157/ 73 . Stop exercise at 04:02 RECOVERY 01:00 . . 77 . 148/ 67 . . RECOVERY 02:00 . . 74 . 148/ 67 . . RECOVERY 03:00 . . 72 . 161/ 68 . . RECOVERY 04:00 . . 72 . 151/ 71 . . RECOVERY 04:41 . . 75 . 168/ 68 . . Electronically signed by : Pritesh Galvan MD 07/26/2022 14:56:03
--- NOTE | 2022-07-26 12:04 | NM_ITS ---
APPROVED REPORT Exam: Nuclear Stress Test Indication: CAD, H/O GA, CABG, HTN, DM, HYPERLIPIDEMIA, FM HX., SOB, FATIGUE Patient Location: Outpatient Stress Tech: Mirlande Zhou [place] Tech:VALENTE Dinero RT(R)(N) Ht: 5 ft 5 in Wt: 187 lbs HR: 68 bpm BP: 180/71 mmHg BSA: 1.92 m2 TID: 1.03 BMI: 31.1 History: CAD, H/O GA, CABG, HTN, DM, HYPERLIPIDEMIA, FM HX., SOB, FATIGUE, PT COULD NOT LAY ON STOMACH FOR PRONE IMAGES Procedure: Patient received 0.4 mg of intravenous Lexiscan, resting heart rate 68 bpm, resting blood pressure 180/71 mmHg, with Lexiscan maximum heart rate achieved was 80 bpm which is % of the maximum predicted heart rate and blood pressure was 187/67 mmHg. With Lexiscan, patient denied any complaint of chest pain. Cardiac Stress and Resting SPECT Images: Cardiac Stress and Resting SPECT images were obtained using technetium 99m Myoview 32.9 mCi stress and 10.71 mCi at rest. 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
== END ==
LOC: RAD 12:04
PROVIDERS: PCP Nurse Practitioner; Visit Provider Physician Assistant
DX: C34.90 Malignant neoplasm of unspecified part of unspecified bronchus or lung (principal); E78.2 Mixed hyperlipidemia; I11.9 Hypertensive heart disease without heart failure; I25.10 Atherosclerotic heart disease of native coronary artery without angina pectoris; I27.9 Pulmonary heart disease, unspecified; I35.9 Nonrheumatic aortic valve disorder, unspecified; I48.0 Paroxysmal atrial fibrillation; I50.42 Chronic combined systolic (congestive) and diastolic (congestive) heart failure; I65.29 Occlusion and stenosis of unspecified carotid artery; I70.1 Atherosclerosis of renal artery; I77.9 Disorder of arteries and arterioles, unspecified; N18.30 Chronic kidney disease, stage 3 unspecified; R00.2 Palpitations; R06.09 Other forms of dyspnea; R07.89 Other chest pain; Z95.1 Presence of aortocoronary bypass graft; I71.40 Abdominal aortic aneurysm, without rupture, unspecified
CPT/HCPCS: 78452; 93017; 93306; A9502; J2785